=== PATIENT | male | born 1945 | race Caucasian/White ===

== ENCOUNTER 2018-09-08 07:54 | Day surgery (SDC) | payer MEDICARE, OTHER ==
[2018-09-08] VITALS (7 sets, daily range): BP systolic 123–136; BP diastolic 67–87
[~2018-09-08] VITALS: Ht 177.8 cm; Wt 105.6 kg
[~2018-09-08 07:54] MED LIST: ASPI-1265 PO; LANTUS SQ; RABE20TA25 PO; SIMV5TAB58 PO; SITA1TBM7 PO; TRAZ-91 PO; ZOL50T PO; ZOLP5TAB8 PO
[2018-09-08] MEDS ORDERED: DULA1.5P SQ (08:28)
[2018-09-08] MEDS ORDERED: GLIM2TAB2 PO (08:28)
[2018-09-08] MEDS ORDERED: LISI-604 PO (08:28)
[2018-09-08] MEDS ORDERED: OMEP20CA10 PO (08:28)
[2018-09-08 08:46] LABS: BASOPHILS # (AUTO) 0.1 X10'3 (0-0.2); BASOPHILS % (AUTO) 0.9 % (0-1); EOSINOPHILS # (AUTO) 0.2 X10'3 (0-0.9); EOSINOPHILS % (AUTO) 2.6 % (0-6); HEMOGLOBIN 15.5 g/dl (14.0-17.9); LYMPHOCYTES # (AUTO) 1.9 X10'3 (1.1-4.8); LYMPHOCYTES % (AUTO) 23.7 % (21-51); MEAN CORPUSCULAR HEMOGLOBIN 30.1 PG (27.0-31.0); MEAN CORPUSCULAR HGB CONC 34.4 g/dL (33.0-36.5); MEAN CORPUSCULAR VOLUME 87.4 FL (78-98); MEAN PLATELET VOLUME 9.7 FL (7.4-10.4); MONOCYTES # (AUTO) 0.6 X10'3 (0-0.9); MONOCYTES % (AUTO) 7.8 % (2-12); NEUTROPHILS # (AUTO) 5.2 X10'3 (1.8-7.7); PLATELET COUNT 129 X10'3 (140-440); RED BLOOD COUNT 5.14 X10'6 (4.70-6.10); RED CELL DISTRIBUTION WIDTH 13.1 % (11.5-14.5)
[2018-09-08 08:48] LABS: ALBUMIN 3.7 G/DL (3.4-5.0); ANION GAP 8 (8-16); BLOOD UREA NITROGEN 22 MG/DL (7-18); BUN/CREATININE RATIO 22.9 (5.4-32.0); CALCIUM 8.9 MG/DL (8.5-10.1); CHLORIDE 104 MMOL/L (99-107); CREATININE 0.96 MG/DL (0.60-1.10); GLUCOSE 247 MG/DL (70-104); POTASSIUM 4.3 MMOL/L (3.5-5.1); SODIUM 141 MMOL/L (135-145); TOTAL CARBON DIOXIDE 28.8 MMOL/L (24-32); eGFR 77 ML/MIN
[2018-09-08] MEDS: normal saline 1000ml 1,000 ML IV PRN ×2 (09:12→16:44)
[2018-09-08] MEDS ORDERED: LIDOcaine 1%/PF 5ML 10 MG/ML VIAL ONE (09:18)
[2018-09-08] MEDS ORDERED: LIDOcaine 1% 30ml preserv. free vial SQ STA (09:22)
== END 2018-09-08 11:40 | disposition home or self-care (01) ==
LOC: SSTAY O 07:54
PROVIDERS: ATTEND Radiology Vascular & Interventional Radiology
DX: R59.0 Localized enlarged lymph nodes (principal); Z87.891 Personal history of nicotine dependence; E11.9 Type 2 diabetes mellitus without complications; I10 Essential (primary) hypertension; K21.9 Gastro-esophageal reflux disease without esophagitis; E78.00 Pure hypercholesterolemia, unspecified; Z79.899 Other long term (current) drug therapy; Z79.82 Long term (current) use of aspirin; Z79.84 Long term (current) use of oral hypoglycemic drugs; Z98.890 Other specified postprocedural states; Z98.49 Cataract extraction status, unspecified eye
CPT/HCPCS: 36415; 38505; 77012; 80048; 85025; J2001; J3490; J7030

== ENCOUNTER 2025-02-28 10:08 | Inpatient (IN) | payer MEDICARE, OTHER ==
[~2025-02-28] VITALS: Ht 177.8 cm; Wt 85.0 kg
[~2025-02-28 10:08] MED LIST changes: +DULA1.5P SQ; +GLIM2TAB6 PO; -LANTUS SQ; +LISI5TAB22 PO; +OMEP20CA15 PO; -RABE20TA25 PO; +SERT-153 PO; -ZOL50T PO
--- NOTE | 2025-02-28 10:14 | Physician Documentation ---
History of Present Illness General Stated Complaint: ALTERED Time Seen by MD: 10:14 OK to notify your PCP?: No Primary Medical Doctor: Thalia ONEAL Source: patient, EMS, RN notes reviewed Mode of Arrival: EMS Exam Limitations: clinical condition History of Present Illness Initial Comments 79-year-old male, with possible history of undiagnosed dementia, brought to the ED via EMS after her daughter found the patient lying on the ground this morning in his home at 0500. At the time patient reportedly did not know that he was lying on the ground or what home he was in. EMS did not note any signs of trauma. The patient's only complaint is some chronic knee and bilateral hip p ain, which he relates to sitting on the gurney. EMS adds that patient apparently goes to physical therapy daily and yesterday did not show up to his appointment. Unable to obtain complete history of present illness due to patient's confusion/amnesia to events Medication Reconciliation Allergies: Coded Allergies: No Known Allergies (Unverified , 02/28/25) Scheduled Aspirin (Aspirin), 81 MG PO DAILY, (Reported) Empaglifloz/Linaglip/Metformin (Trijardy Xr 10-5-1,000 mg Tab), 1 TAB PO DAILY, (Reported) Lisinopril (Lisinopril), 1 TAB PO DAILY, (Reported) Omeprazole (Omeprazole), 1 CAP PO DAILY, (Reported) Simvastatin* (Zocor*), 1 TAB PO HS, (Reported) Discontinued Medications Metformin Hcl* (Metformin ER*), 2 TAB PO HS, (Reported) Sertraline HCl (Sertraline HCl), 1.5 TAB PO DAILY, (Reported) Past Medical History Drug Use: none Lives In: Home Unable to obtain complete PMH: altered mental status Review of Systems Unable to obtain complete ROS: altered mental status Physical Exam Physical Exam Vital Signs: RN Vital Signs have been reviewed: Yes Pulse Oximetry Reflects: adequate oxygenation Physical Exam VITALS: Reviewed and as above. GENERAL: Alert, no apparent distress. HEENT: Normocephalic, atraumatic, PERRL, EOMI, dry mucosa RESPIRATORY: Lungs clear, normal breath sounds, no respiratory distress. CHEST: No accessory muscle use, no retractions CV: Regular rate, rhythm, no edema, no murmur, No: JVD GI: Soft, non-tender, bowels sounds present, no rebound, guarding, or rigidity MUSCULOSKELETAL: No deformities, no edema SKIN: Warm and dry, no rash NEURO: Oriented x4, No motor or sensory deficit PSYCH: Normal mood and affect, no agitation Progress Progress Note 1316: Spoke with patient's daughter who reports patient has been living alone for the last week. Patient's house is a mess. He also reports that he has had apparent episodes of confusion over the last several months. A1c has also been high, in the 9s, and he has not been able to see a primary care doctor. 1317: Hospitalist paged. 1337: Case discussed with PHYSICAL THERAPY ASSISTANT INSTRUCTOR Sarah, hospitalist, who agrees to evaluate the patient for admission. Results/Orders Reviewed/noted all lab results: Yes Results/Orders Orders - OHLFSEARLE MD Electrocardiogram (02/28/25 10:14) Chest,Single View (02/28/25 10:14) Ct Head (02/28/25 13:04) Covid19 Binax Poc Result Entry (02/28/25 13:05) Page Hospitalist (02/28/25 13:17) Fill Out Med Reconciliation (02/28/25 13:17) Completed Orders - OHEARLE GRAJEDA MD Electrocardiogram (02/28/25 10:14) Cbc/Diff (02/28/25 10:14) MG (02/28/25 10:14) Chest,Single View (02/28/25 10:14) Procalcitonin (02/28/25 10:14) BMP (02/28/25 10:14) Hs Troponin I W Calculations (02/28/25 10:14) PBNP (02/28/25 10:14) Normal Saline 1000ml (0.9% Sodium Chlori (02/28/25 10:15) Ethanol (02/28/25 10:50) Ua W/Microscopic, Cult If Ind (02/28/25 12:00) Ct Head (02/28/25 13:04) Laboratory Tests Test 02/28/25 10:50 02/28/25 12:00 White Blood Count 10.5 Red Blood Count 4.85 Hemoglobin 13.8 L Hematocrit 41.7 L Mean Corpuscular Volume 85.9 Mean Corpuscular Hemoglobin 28.4 Mean Corpuscular Hemoglobin Concent 33.1 Red Cell Distribution Width 16.5 H Platelet Count 150 Mean Platelet Volume 9.5 Neutrophils (%) (Auto) 82.7 H Lymphocytes (%) (Auto) 9.5 L Monocytes (%) (Auto) 5.6 Eosinophils (%) (Auto) 0.8 Basophils (%) (Auto) 1.4 H Neutrophils # (Auto) 8.7 H Lymphocytes # (Auto) 1.0 L Monocytes # (Auto) 0.6 Eosinophils # (Auto) 0.1 Basophils # (Auto) 0.2 CBC Comment Sodium Level 142 Potassium Level 3.9 Chloride Level 107 Carbon Dioxide Level 22.3 L Anion Gap 13 Blood Urea Nitrogen 10 Creatinine 0.96 Estimated GFR/1.73 m2 76 BUN/Creatinine Ratio 10.4 Glucose Level 164 H Calcium Level 8.8 Magnesium Level 1.4 L Troponin I High Sensitivity 19 Pro-B-Type Natriuretic Peptide 1589 H Albumin 3.1 L Procalcitonin < 0.05 Chemistry Comments Ethyl Alcohol Level < 10 Urine Specimen Description Non-specified Urine Color Yellow Urine Clarity Slightly cloudy Urine pH 5.5 Urine Specific [place] 1.020 Urine Protein Negative Urine Glucose (UA) >=1000 H Urine Ketones 40 H Urine Occult Blood Trace-intact Urine Nitrite Negative Urine Bilirubin Small Urine Urobilinogen 0.2 Urine Leukocyte Esterase Negative Urine RBC 0-2 Urine WBC 0-4 Urine Squamous Epithelial Cells None seen Urine Bacteria None seen Urine Mucus None seen Urine Culture Indicated Not ind Volume Urine Centrifuged 10 ml Urine Comment EKG/XRAY/CT/US/VASC/MRI EKG : Additional Comment 1017: EKG interpreted by myself to show accelerated junctional rhythm at a rate of 92bpm. RBBB, LAFB, nonspecific ST changes. Chest X-Ray : Additional Comments CHEST RADIOGRAPH Indication: SEPSIS Technique: Single frontal view of the chest was obtained Comparison: None FINDINGS: Lines and Tubes: None Lungs: No focal consolidation. Pleura: No effusion. No pneumothorax. Cardiomediastinal contours: Unremarkable Bones: Right total shoulder arthroplasty IMPRESSION: No acute cardiopulmonary disease. Reviewed by myself. CT : Interpreted By: radiologist CT: head With Contrast?: No Impression CT CT HEAD Indication: syncope EXAM DATE: 02/28/2025 01:13 PM COMPARISON: None TECHNIQUE: CT of the head without intravenous contrast. RADIATION DOSE: CTDIvol: 64.2 mGy, DLP: [id number] mGy*cm FINDINGS: There is no intracranial hemorrhage. There is no extra-axial fluid, mass, mass effect or midline shift. The ventricles are midline and normal in size. Basilar cisterns are patent. There are moderate periventricular and subcortical white matter chronic microvascular ischemic changes. Mild global cerebral volume loss The paranasal sinuses and mastoids are well-pneumatized. Imaged portion of the orbits are unremarkable. IMPRESSION: No intracranial hemorrhage or mass effect. Moderate chronic microvascular ischemic changes. Reviewed by myself. Medical Decision Making Additional info obtained from: old records (Only other visit to this ER in 2011 for lightheadedness) Findings The patient presents with complaints of episodic abnormal and altered mental status, the patient's seems to have episodes of confusion who was found on the floor. He has been living alone for the last week. The patient's evaluation in the emergency room was fairly unremarkable his labs have been reviewed chest x- ray was reviewed and was unremarkable interpreted as chest x-ray as showing a normal appearing chest x-ray with normal cardiac silhouette normal mediastinum and normal-appearing lung robert CT imaging was reviewed by me. The case was discussed with the length with his as well as the hospitalist and the hospitalist service. The patient will be admitted to the hospitalist for further evaluation. Prior hospitalizations has been reviewed. Departure Time of Disposition: 13:17 Disposition: ADMITTED INPATIENT Admitted to Inpatient Unit: yes, to hospitalist Impression: Primary Impression: Altered mental status Qualified Codes: R41.82 - Altered mental status, unspecified Additional Impressions: Fall Qualified Codes: W19.XXXA - Unspecified fall, initial encounter Dehydration Condition: Guarded Referrals: NO PRIMARY CARE PROVIDER (PCP) Signature Scribe Signature: Scribed for Earle Alegria MD by Henrique Bhardwaj . 02/28/25 10:45 Attestation: The note accurately reflects work and decisions made by me.Earle Alegria MD 03/06/25 10:57 EARLE ALEGRIA MD Feb 28, 2025 10:14 HENRIQUE FU Feb 28, 2025 11:06
[2025-02-28] MEDS: normal saline 1000ML IV soln IVB ONE (10:59)
[2025-02-28 11:04] LABS: MEAN PLATELET VOLUME 9.5 FL (7.4-10.4); RED CELL DISTRIBUTION WIDTH 16.5 % (11.5-14.5)
--- NOTE | 2025-02-28 11:04 | RADIOLOGY REPORT ---
CHEST RADIOGRAPH Indication: SEPSIS Technique: Single frontal view of the chest was obtained Comparison: None FINDINGS: Lines and Tubes: None Lungs: No focal consolidation. Pleura: No effusion. No pneumothorax. Cardiomediastinal contours: Unremarkable Bones: Right total shoulder arthroplasty IMPRESSION: No acute cardiopulmonary disease.
[2025-02-28 11:27] LABS: CREATININE 0.96 MG/DL (0.60-1.10); PRO BRAIN NATRIURETIC PEPTIDE 1589 PG/ML (0-450); TOTAL CARBON DIOXIDE 22.3 MMOL/L (24-32); eCRCL 67 ML/MIN; eGFR 76 ML/MIN
[2025-02-28 12:31] LABS: ETHANOL < 10 MG/DL (<10)
[2025-02-28 12:33] LABS: LEUKOCYTE ESTERASE ,URINE NEGATIVE (Neg); NITRITES, URINE NEGATIVE (Neg); OCCULT BLOOD,URINE TRACE-INTACT (Neg)
[2025-02-28 12:37] LABS: UA COLLECTION TYPE NON-SPECIFIED
--- NOTE | 2025-02-28 12:48 | ELECTROCARDIOGRAPH REPORT ---
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 DEVONTE Maciel Measurements Intervals [place] Rate: 92 P: 0 GA: 0 QRS: -84 QRSD: 146 T: 47 QT: 403 QTc: 499 Interpretive Statements probably Sinus rhythm RBBB and LAFB Electronically Signed On 02-28-2025 18:03:[address] DEVONTE Maciel Please click the below link to view image of tracing.
[2025-02-28 12:49] LABS: MUCUS STRANDS NONE SEEN /LPF (Neg); SQUAMOUS EPITHELIAL CELL,UR NONE SEEN /LPF (FEW)
[2025-02-28] MEDS ORDERED: ondansetron 4mg rapidly disintigrating tab PO PRN (13:35)
[2025-02-28] MEDS ORDERED: potassium Cl 40MEQ/1/2NS 520ml 520 ML IV PRN (13:35)
[2025-02-28] MEDS ORDERED: ondansetron/PF 4mg/2ml inj IV PRN (13:35)
[2025-02-28] MEDS ORDERED: magnesium hydroxide 30ml (MOM) UD suspension PO PRN (13:35)
[2025-02-28] MEDS ORDERED: mag hydrox/Alum hydrox/simeth 30ml oral suspension PO PRN (13:35)
[2025-02-28] MEDS ORDERED: magnesium Cl slow-release 64mg tablet PO PRN (13:35)
[2025-02-28] MEDS ORDERED: potassium Cl 20 mEq SR tablet PO PRN ×2 (13:35)
--- NOTE | 2025-02-28 13:37 | RADIOLOGY REPORT ---
CT CT HEAD Indication: syncope EXAM DATE: 02/28/2025 01:13 PM COMPARISON: None TECHNIQUE: CT of the head without intravenous contrast. RADIATION DOSE: CTDIvol: 64.2 mGy, DLP: [id number] mGy*cm FINDINGS: There is no intracranial hemorrhage. There is no extra-axial fluid, mass, mass effect or midline shif t. The ventricles are midline and normal in size. Basilar cisterns are patent. There are moderate per iventricular and subcortical white matter chronic microvascular ischemic changes. Mild global cerebr al volume loss The paranasal sinuses and mastoids are well-pneumatized. Imaged portion of the orbits are unremarkabl e. IMPRESSION: No intracranial hemorrhage or mass effect. Moderate chronic microvascular ischemic changes.
[2025-02-28] MEDS ORDERED: dextrose 50%-water 50ml dispensing syringe IV PRN ×2 (13:40)
[2025-02-28] MEDS ORDERED: glucagon, human recombinant 1mg kit SUBCUT PRN (13:40)
[2025-02-28] MEDS ORDERED: DEXTROSE 15 GM of carb/4 tabs (each vial/BOTTLE has 4 tablets) PO PRN ×2 (13:40)
--- NOTE | 2025-02-28 14:07 | HISTORY AND PHYSICAL ---
History & Physical Providers to CC ~ History of Present Illness Reason for Admit\Complaint: Metabolic encephalopathy History of Present Illness Yaakov Frank is a 79-year-old male with a past medical history of NIDDM and possible history of undiagnosed dementia who was brought to the ED after being found down on ground by her daughter this morning. At the time patient reportedly did not know that he was lying on the ground or what home he was in. EMS did not note any signs of trauma. At the time of admission assessment, patient is pleasant and only mildly confused. Due to confusion, most history was taken from his POA Dolores, daughter at bedside. His daughter denies prior PR/CAD, CVA, cardiac arrhythmia, DVT/PE, or GIB. Patient denies chest pain, palpitations, shortness of breath, abdominal pain, n/v/d, fever, chills. Patient is to be admitted for further workups and treatment. Allergies: Coded Allergies: No Known Allergies (Unverified , 02/28/25) Home Medications Home Medications Active Reported Trulicity (Dulaglutide) 1.5 Mg/0.5 Ml Pen.injctr 1.5 Mg SQ Q7D Omeprazole 20 Mg Capsule.dr 1 Cap PO DAILY Lisinopril 5 Mg Tablet 2 Tab PO DAILY Glimepiride 2 Mg Tablet 1 Tab PO DAILY Trazodone Hcl* (Trazodone HCl) 100 Mg Tablet 75 Mg PO DAY Sertraline HCl 50 Mg Tablet 50 Mg PO DAILY Zocor* (Simvastatin) 5 Mg Tablet 5 Mg PO HS Janumet Xr 100-1,000 Mg Tablet (Sitagliptin Phosphate/Metformin HCl) 1 Each Tbmp.24hr 1 Tab PO DAILY Aspirin 81 Mg Tab.chew 81 Mg PO DAILY Ambien* (Zolpidem Tartrate) 5 Mg Tablet 10 Mg PO HS Past Medical History Past Medical History NIDDM Past Surgical History Surgical History Comment Left knee replacement (December,) Orthopedic surgeries Past Social History Social History Comment Alcohol: Occasionally Tobacco: Cigar, daily Illicit drug use: Denies Living situation: Lives at home alone ROS ROS Other than positives in HPI, all 14 review of systems are negative Exam Vitals: Vital Signs Date Time Temp Pulse Resp B/P (MAP) Pulse Ox O2 Delivery O2 Flow Rate FiO2 02/28/25 10:53 90 22 129/84 (99) 99 0 02/28/25 10:13 98.4 General: Generalized weakness, A&Ox1, NAD HEENT: Normocephalic, PERRLA Neck: Supple, trachea midline, no JVD Chest: Clear to auscultation bilaterally Cardiovascular: RRR, S1&S2 Abdomen: Soft and nontender Extremities: No cyanosis/clubbing/or edema Central Nervous System: No focal deficits Musculoskeletal: Tenderness over left lateral buttock with palpation Skin: Warm and intact Diagnostic Data Last Recorded Lab Results: 02/28/25 1050 02/28/25 1050 Additional Plan Assessment & Plan Metabolic encephalopathy vs dementia NIDDM Left knee arthroplasty (December,) Gait imbalance High-risk for falls Chronic tobacco abuse -CT head, CXR negative, UA negative UTI, EKG accelerated junctional rhythm 92bpm, hemodynamically stable -IVF, PT eval, hyper/hypoglycemic protocol, nicotine patch; follow A1c, lipid panel pending med rec DVT/VTE prophylaxis: Heparin Code status: Full code I spent a total of 16 minutes on smoking cessation education. I provided extensive counseling regarding smoking cessation. I spent a total of 35 minutes discussing Advanced Care Planning measures with the patient and his POA Dolores, daughter at bedside. Advance care planning: Discussed with patient the importance of advance care planning in case of emergent situation. We discussed various resuscitative measures/ ACP at the time of admission. Patient and POA voiced understanding and decided on a full code status. Date of Service: Feb 28, 2025 Billing Provider: JOSH MONAHAN Common Visit Codes: 31254-DYJPFDH INP/OBS CARE (HIGH) Secondary Visit Codes: 22640-LEUUB CHNG SMOKING >10MIN, 82856-HGYTFUFS CARE PLAN 30 MINUTES JOSH MONAHAN Feb 28, 2025 14:07
[2025-02-28] MEDS: magnesium sulf-water 4G/100mL 100 ML IV PRN (14:12)
[2025-02-28] MEDS: normal saline 1000ml 1,000 ML IV SCH (14:12)
[2025-02-28] MEDS: nicotine 7mg patch - 24hr TD ONE (14:44)
[2025-02-28] MEDS ORDERED: EMPA1TAB30 PO (14:58)
[2025-02-28] MEDS ORDERED: LISI10TA27 PO (14:58)
[2025-02-28] MEDS ORDERED: METF-900 PO (14:58)
[2025-02-28] MEDS ORDERED: SIMV-42 PO (14:58)
[2025-02-28] MEDS: INSULIN LISPRO 100 UNIT/ML INSULN.PEN MULTI-DOSE SQ SCH (17:00)
[2025-02-28] MEDS: magnesium sulf-water 2g/50mL 50 ML IV PRN (17:07)
[2025-02-28] MEDS: docusate sod 100mg capsule PO SCH (19:21)
[2025-02-28] MEDS: heparin, porcine 5000 units/ml vial SQ SCH (19:22)
[2025-02-28] MEDS: K and/or MAG REPLACEMENT MC SCH (20:00)
[2025-02-28 22:00] VITALS: BP 124/63; PULSE 87; RESP 16; TEMP 97.4; O2SAT 92
[2025-03-01 06:00] VITALS: BP 136/68; PULSE 69; RESP 20; TEMP 98.7; O2SAT 97
[2025-03-01 06:01] LABS: MEAN PLATELET VOLUME 9.3 FL (7.4-10.4); RED CELL DISTRIBUTION WIDTH 16.4 % (11.5-14.5)
[2025-03-01 06:25] LABS: CHOL/HDL RATIO 3.2 (0.00-4.99); CREATININE 0.85 MG/DL (0.60-1.10); LDL CHOLESTEROL 64 MG/DL (50-100); TOTAL CARBON DIOXIDE 23.6 MMOL/L (24-32); eCRCL 75 ML/MIN; eGFR 87 ML/MIN
[2025-03-01] MEDS: nicotine 7mg patch - 24hr TD SCH (08:00)
[2025-03-01] MEDS: pantoprazole 40mg Tablet.DR PO SCH (08:38)
[2025-03-01 10:00] VITALS: BP 134/95; PULSE 58; RESP 16; TEMP 98.4; O2SAT 96
--- NOTE | 2025-03-01 12:04 | PROGRESS NOTE ---
Daily Progress Note Providers to CC ~ Antibiotic Timeout Antibiotic Ordered?: No Subjective No acute events overnight. Patient examined at bedside. No new complaints, not in acute distress. Patient denies chest pain, sob, palpitations, abdominal pain, n/v/d. Vss, labs unremarkable. Tele sinus in 60s. 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 intact, no focal deficits Musculoskeletal: No paraspinal muscle tenderness, no muscle spasm Skin: Warm and intact Problem\Assessment\Plan Assessment & Plan Metabolic encephalopathy vs dementia NIDDM HTN HLD Left knee arthroplasty (December,) Gait imbalance High-risk for falls Chronic tobacco abuse -CT head, CXR negative, UA negative UTI, EKG accelerated junctional rhythm 92bpm, hemodynamically stable -IVF, PT eval, hyper/hypoglycemic protocol, nicotine patch DVT/VTE prophylaxis: Heparin Code status: Full code Date of Service: Mar 01, 2025 Billing Provider: JOSH MONAHAN Common Visit Codes: 44366-[id number] INP/OBS CARE(HIGH) JOSH MONAHAN Mar 01, 2025 12:03
[2025-03-01] MEDS: ringers solution, lacted 1,000 ML IV SCH (12:12)
--- NOTE | 2025-03-01 15:51 | RADIOLOGY REPORT ---
[facility]: MR MRI HEAD INDICATION: encephalopathy COMPARISON: CT CT HEAD on DOS: 02/28/25 TECHNIQUE: Multiplanar, multisequence magnetic resonance imaging of the brain was performed without the use of i ntravenous contrast. FINDINGS: No evidence of acute or remote infarct. No intracranial hemorrhage. No mass effect. There is periventricular/deep white matter T2/FLAIR hyperintensity is nonspecific, but most commonly associated with chronic microvascular disease. The ventricles and sulci are normal in size for age. Clear basal cisterns. Flow voids in the major intracranial vessels are maintained. No abnormality of the orbits. Paranasal sinuses and mastoid air cells are clear. No abnormality of the visualized osseous structures and extracranial soft tissues. IMPRESSION: Suboptimal examination due to extensive motion artifact. No acute infarct, intracranial hemorrhage, mass effect, or hydrocephalus.
[2025-03-01 18:00] VITALS: BP 128/69; PULSE 68; RESP 18; TEMP 98.8; O2SAT 97
[2025-03-01 22:00] VITALS: BP 139/61; PULSE 83; RESP 18; TEMP 97.9; O2SAT 95
[2025-03-02 06:00] VITALS: BP 125/61; PULSE 64; RESP 17; TEMP 98.2; O2SAT 96
[2025-03-02 06:29] LABS: MEAN PLATELET VOLUME 9.4 FL (7.4-10.4); RED CELL DISTRIBUTION WIDTH 16.3 % (11.5-14.5)
[2025-03-02] MEDS: HYDROcodone/acetaminophen 5mg/325mg tablet PO PRN (07:43)
[2025-03-02 08:00] VITALS: BP_SYST 120; BP_SYST 94; BP_SYST 97; BP_DIAS 51; BP_DIAS 53; PULSE 71; PULSE 75; PULSE 90; RESP 14; O2SAT 97
[2025-03-02 08:43] VITALS: RESP 14
[2025-03-02 12:15] LABS: CREATININE 1.00 MG/DL (0.60-1.10); TOTAL CARBON DIOXIDE 23.2 MMOL/L (24-32); eCRCL 64 ML/MIN; eGFR 72 ML/MIN
--- NOTE | 2025-03-02 16:24 | DISCHARGE SUMMARY ---
Discharge Summary Providers to CC ~ Discharge Summary Admission Diagnosis: Metabolic encephalopathy Hospital Course DATE OF ADMISSION: 02/28/25 DATE OF DISCHARGE: 03/02/25 Discharge Diagnosis\Comment: Dementia with psychosis NIDDM HTN HLD Left knee arthroplasty (December,) Gait imbalance High-risk for falls Chronic tobacco abuse Operations\Procedures: None Consultants: None Complications: None Condition on DC: Stable Continued Medications: Aspirin (Aspirin) 81 Mg Tab.chew 81 MG PO DAILY Empaglifloz/Linaglip/Metformin (Trijardy Xr 10-5-1,000 mg Tab) 10 Mg-5 Mg-1,000 Mg Tab.bp.24h 1 TAB PO DAILY Lisinopril (Lisinopril) 10 Mg Tablet 1 TAB PO DAILY Omeprazole (Omeprazole) 20 Mg Capsule.dr 1 CAP PO DAILY Simvastatin* (Zocor*) 20 Mg Tablet 1 TAB PO HS Discontinued Medications: Metformin Hcl* (Metformin ER*) 500 Mg Tab.sr.24h 2 TAB PO HS Sertraline HCl (Sertraline HCl) 50 Mg Tablet 1.5 TAB PO DAILY Discharge Summary: History of Present Illness Yaakov Frank is a 79-year-old male with a past medical history of NIDDM and possible history of undiagnosed dementia who was brought to the ED after being found down on ground by her daughter this morning. At the time patient reportedly did not know that he was lying on the ground or what home he was in. EMS did not note any signs of trauma. At the time of admission assessment, patient is pleasant and only mildly confused. Due to confusion, most history was taken from his MAURICIOA Dolores, daughter at bedside. His daughter denies prior AL/CAD, CVA, cardiac arrhythmia, DVT/PE, or GIB. Patient denies chest pain, palpitations, shortness of breath, abdominal pain, n/v/d, fever, chills. Patient is to be admitted for further workups and treatment. Hospital Course Diagnostic findings including urinalysis, chest x-ray, head CT, head MRI were unremarkable. Patient was treated with supportive care and his mentation came back to his baseline. There is a high index of suspicion for initially reported altered mental status likely due to developing dementia with intermittent psychotic features as patient reports incidents that is not consistent with family member's report. However, during the hospital stay, patient was mostly coherent since admission. Patient did not experience further complications throughout the entire hospital stay and remained clinically and hemodynamically stable. Patient was seen and examined on the day of discharge. On day of discharge, vss and labs unremarkable. All labs, diagnostic workups, discharge plan discussed with patient and her daughter at bedside in details during visit before discharge. All questions and concerns answered to the best of my professional knowledge. Patient is to be discharged with HH and to follow-up with PCP within 2 weeks. 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
== END 2025-03-02 14:26 | disposition home health service (06) | DRG 884 ==
LOC: ER 10:09 → ED HOLD 13:38 → UNDOADMIN 13:38 → ED HOLD 14:13 → ORTHO 4S 18:51 → ED HOLD 18:51
PROVIDERS: ADMIT Nurse Practitioner Family; ATTEND Nurse Practitioner Family
DX: F03.92 Unspecified dementia, unspecified severity, with psychotic disturbance (principal); E86.0 Dehydration; E11.9 Type 2 diabetes mellitus without complications; F17.200 Nicotine dependence, unspecified, uncomplicated; Z20.822 Contact with and (suspected) exposure to COVID-19; Z96.652 Presence of left artificial knee joint; Z79.82 Long term (current) use of aspirin; Z79.84 Long term (current) use of oral hypoglycemic drugs; Z79.899 Other long term (current) drug therapy
CPT/HCPCS: 36415; 70450; 70551; 71045; 80048; 80053; 80061; 80320; 81001; 82948; 83036; 83735; 83880; 84145; 84484; 85025; 87081; 87811; 93005; 96365; 96372; 97161; 97530; 99285; A6213; G0378; J1644; J1815; J3475; J7030; J7120